=== PATIENT | female | born 1970 | race Caucasian/White ===

== ENCOUNTER 2024-05-20 14:45 | Emergency (ER) | payer OTHER, SELFPAY ==
[2024-05-20 14:47] VITALS: BP 144/104
[2024-05-20 16:53] LABS: % Basophils 1.1 % (0-2); % Eosinophils 6.4 % (0-6); % Immature Granulocytes 0.4 % (0-0.5); % Lymphocytes 39.7 % (20.5-51.1); % Monocytes 7.1 % (1.7-9.3); % Neutrophils 45.3 % (42.2-75.2); Absolute Basophils 0.1 10^3/uL (0-0.2); Absolute Eosinophils 0.3 10^3/uL (0-0.7); Absolute Lymphocytes 2.1 10^3/uL (1.2-3.4); Absolute Monocytes 0.4 10^3/uL (0.1-0.6); Absolute Neutrophils 2.4 10^3/uL (1.4-6.5); Hematocrit 36.4 % (37.0-47.0); Hemoglobin 12.8 g/dL (12.0-16.0); Mean Corp Hgb Conc. 35.2 g/dL (33.0-37.0); Mean Corpuscular Hgb 33.2 pg (27.0-31.0); Mean Corpuscular Volume 94.5 fL (81.0-99.0); Mean Platelet Volume 9.2 fL (7.4-10.4); Nucleated Red Blood Cells % 0 %; Platelet Count 262 10^3/uL (130-400); Red Blood Cell Count 3.85 10^6/uL (4.20-5.40); Red Cell Dist. Width 11.9 % (11.5-14.5); White Blood Cell Count 5.3 10^3/uL (4.8-10.8)
[2024-05-20 17:02] LABS: Erythrocyte Sed Rate 10 mm/hour (0-20)
--- NOTE | 2024-05-20 17:05 | ED.GENMED ---
History of Present Illness
General
Chief Complaint: Eye Problems
Source: patient
Exam Limitations: none
Time Seen by Provider: 05/20/24 16:05
Nursing documentation reviewed up to this point in time: agreed with
History of Present Illness
History of Present Illness:
Patient to ED with complaint of generalized weakness. States she was driving and suddenly noted that her vision seemed off. Had on her progressive glasses and rx sunglasses so she was not sure if it was the double prescription or her vision was
off. States she arrived at her destination and states she had difficulty standing and walking, felt generally weak. She positioned herself on the floor for a bit but did not feel improved. Came to ED for eval. Reports atypical head pain. Denies
fever/chills, recent illness. No n/v/d. No other complaints
Past History
Past History
ED Past Medical History: Asthma, GERD, Psychiatric (Anxiety, panic disorder), Other (Cervical disc disease, ovarian cysts, eczema), Other (Fibromyalgia, migraines, carpal tunnel) and Other (panic Disorder)
ED Past Surgical History: Cholecystectomy, Orthopedic and Tonsilectomy
Social History
Tobacco: Non-smoker
Alcohol: None
Drug: None
Personal:
Living: with family
Employment: Employed
Family History
Family History: Negative CAD or Sudden
Review of Systems
Review of Systems
Allergies reviewed?: Yes
All Other Systems: ROS reviewed and negative except as documented in HPI and ROS
Constitutional: Reports no symptoms
EENT: Reports other (vision changes)
Respiratory: Reports no symptoms
Cardiac: Reports no symptoms
ABD/GI: Reports no symptoms
: Reports no symptoms
Musculoskeletal: Reports no symptoms
Skin: Reports no symptoms
Neurological: Reports headache and weakness
Psychiatric: Reports no symptoms
Phy Exam
General Physical Exam
General Presentation: well appearing and no apparent distress
General age: appears stated age
General Skin: warm and dry
General Habitus: normal
General Mental: alert
General Hydration: appears well hydrated
ENT Exam
ENT Exam: EOMI, TM's normal, neck supple and normocephalic
Eye Exam
Eye Exam: PERRL, EOMI, conjunctiva normal and globe normal
Pulmonary Exam
Pulmonary Exam: lungs clear and no respiratory distress
Neurological Exam
Neurological Exam: alert, oriented x3, CN II-XII intact, no motor deficits, no sensory deficits and speech normal
Neyda Coma Scale
Eye Opening: Spontaneous
Verbal Response: Oriented
Motor Response: Obeys Commands
GCS Total Score: 15
Mental
Mental Status: oriented to person, oriented to place, oriented to time and usual mental status
Describe Speech: normal speech
Cranial
Cranial Nerves: normal
EOM (CN3/4/6): intact
Musculoskeletal Exam
Musculoskeletal Exam: full ROM and neuro vasc intact
Skin Exam
Skin Exam: normal color, warm/dry and no rash
Psychiatric Exam
Psychiatric Exam: normal mood/affect
Course
Orders/Labs/Results
Orders:
Orders
05/20/24 16:28
CT Head W/o Iv Contrast Urgent
Comment:
Reason For Exam: change in mental status
05/20/24 16:47
CRP [C-Reactive Protein] Urgent
Complete Blood Count/With Diff Urgent
Comprehensive Metabolic Panel Urgent
Sed Rate [Erythrocyte Sed Rate] Urgent
Abnormal Lab Results
05/20/24
16:47
RBC 3.85 L 10^6/uL
(4.20-5.40)
Hct 36.4 L %
(37.0-47.0)
MCH 33.2 H pg
(27.0-31.0)
Eosinophils % 6.4 H %
(0-6)
BUN 18 H mg/dl
(7-17)
Glucose 103 H mg/dl
(70-99)
AST 42 H U/L
(14-36)
05/20/24 16:47
05/20/24 16:47
Vital Signs
Initial and Last Documented VS:
Initial Vital Signs
Temp Pulse Resp BP Pulse Ox
98.5 F 98 20 144/104 100
05/20/24 14:47 05/20/24 14:47 05/20/24 14:47 05/20/24 14:47 05/20/24 14:47
Last Documented Vital Signs
Temp Pulse Resp BP Pulse Ox
98.5 F 87 16 122/73 100
05/20/24 14:47 05/20/24 18:57 05/20/24 18:57 05/20/24 18:57 05/20/24 18:57
*Radiology
Radiology exam reviewed: radiology read reviewed
*Pulse Oximetry
Patient hypoxic: no
*Critical Care Note
Total Time (30-74mins, 75-104mins- exclusive of procedures): Not Applicable
ED Attending Note
-
Portions of this chart may have been created with voice recognition software.� Occasional wrong word or��sound alike� substitutions may have occurred due to the inherent limitations of voice recognition software.
Discharge Plan
Departure
Patient Disposition: Home (Routine Discharge)
Date of Disposition: 05/20/24
Time of Disposition: 18:11
Patient with high blood pressure during this ER visit?: No
Condition: Good
Covid-19: Not Applicable
Discharge Problem:
Weakness
Instructions: Weakness ED
Prescriptions:
No Action
clonazepam 0.5 MG tablet
0.25 mg PO .AM
Patient Comments:
0.5 in am and 1.5 at bedtime
albuterol sulfate [Ventolin HFA] 90 MCG/PUFF HFA aerosol inhaler
2 puff inhalation PRN PRN (Reason: sob)
fluticasone propionate 1 SPRAY spray,suspension
2 spray intranasal DAILY
cetirizine 10 MG tablet
10 mg PO DAILY
Patient Comments:
Pt takes 2 tabs in am
famotidine 20 MG tablet
20 mg PO BID
Patient Comments:
takes 8am and 6pm
montelukast 10 MG tablet
10 mg PO QPM Qty: 30 0RF
fexofenadine [Kelly] 180 MG tablet
1 tab PO DAILY
Patient Comments:
2tabs in eliud at 6pm
epinephrine [EpiPen] 0.3 MG/0.3/SYRINGE auto-injector
0.3 mg IM ONCE PRN (Reason: ALLERGIC REACTION)
valacyclovir [Valtrex] 1,000 MG tablet
500 mg PO BID
Patient Comments:
pt takes 8am an d6pm
midodrine 10 MG tablet
15 mg PO BID
Patient Comments:
8am and 2pm pt takes medication
duloxetine 30 MG capsule,delayed release(DR/EC)
30 mg PO BID
Patient Comments:
pt takes 8am and 6pm
clonazepam 0.5 MG tablet
0.75 mg PO HS
Ketotifen Fumarate
2 mg PO BID
Patient Comments:
compound takes at 8am and 6pm
Nadolol
20 mg PO BID
Vascepa
2,000 mg PO BID
Patient Comments:
[facility] Pharm Fish oil 2tabs in am and 2 tabs at night
cromolyn [Gastrocrom] 100 MG/5 ML concentrate
2 ml PO QID
Patient Comments:
8am, 1pm 6pm and 10pm
ketotifen fumarate [Alaway] 10 ML drops
5 ml OP PRN PRN (Reason: .)
Patient Comments:
eye drop prn
triamcinolone acetonide 1 APPLIC ointment
1 applic topical BID
Patient Comments:
left leg dfor eczema
docusate sodium [Stool Softener] 100 MG capsule
1 tab PO DAILY
azelastine 1 SPRAY aerosol,spray
1 spray intranasal PRN PRN (Reason: .)
hydroxyzine HCl 10 MG tablet
20 mg PO HS
omalizumab [Xolair] 150 MG recon soln
2.4 ml S .[id number]
Patient Comments:
1 vial in each arm. Pt had saturday
fenofibrate nanocrystallized 48 MG tablet
48 mg PO DAILY
tiotropium bromide [Spiriva Respimat] 1 PUFF mist
1 puff inhalation DAILY
Riboflavin
2 tab PO DAILY
Patient Comments:
[id number] 200-180-50
Riboflavin Capsule
200 BID
Patient Comments:
200/200/200/75 pt takes 8am and 6pm for migraines
diphenhydramine HCl [Banophen] 25 MG capsule
25 mg PO Q4HPRN PRN (Reason: Itching, Rash) Qty: 10 0RF
prednisone 50 MG tablet
50 mg PO DAILY Qty: 5 0RF
epinephrine [EpiPen] 0.3 MG/0.3/SYRINGE auto-injector
0.3 mg IM .STAT PRN (Reason: Breathing Difficulty) Qty: 1 0RF
Referrals:
Benjamin Jefferson DO [Family Provider] - Tomorrow
Activity Restrictions/Additional Instructions:
Return to the emergency department immediately for any changes in/worsening of your symptoms
Interventions
Interventions:
*Risk Screen - Suicide Last Done: 05/20/24 14:47
*General Assessment Last Done: 05/20/24 19:03
*Neglect/Abuse Screening Last Done: 05/20/24 19:03
ED- Fall Risk Assessment Last Done: 05/20/24 19:03
*ED COVID-19 Vaccine History Last Done: 05/20/24 19:03
*Nursing Disposition Last Done: 05/20/24 19:03
Discharge Date and Time
Discharge Date/Time: 05/20/24 19:05
Print Language: SYRIAC
[2024-05-20 17:15] LABS: C-Reactive Protein < 5.00 mg/L (0.0-10.00)
[2024-05-20 17:19] LABS: ALT (SGPT) 35 U/L (0-35); AST (SGOT) 42 U/L (14-36); Albumin 4.7 g/dl (3.5-5.0); Alkaline Phosphatase 46 U/L (38-126); Blood Urea Nitrogen 18 mg/dl (7-17); Carbon Dioxide 27 mmol/L (22-30); Chloride 101 mmol/L (98-107); Glucose 103 mg/dl (70-99); Potassium 5.1 mmol/L (3.5-5.1); Sodium 140 mmol/L (135-145); Total Bilirubin 0.3 mg/dl (0.2-1.3); Total Protein 6.9 g/dl (6.3-8.2); eGFR > 60.00
[2024-05-20 18:57] VITALS: BP 122/73
== END 2024-05-20 19:05 | disposition home or self-care (01) ==
LOC: EMR 14:45
PROVIDERS: Nurse Practitioner; EMERGENCY PHYSICIAN Emergency Medicine; FAMILY PHYSICIAN Family Medicine
DX: R53.1 Weakness (principal); J45.909 Unspecified asthma, uncomplicated; K21.9 Gastro-esophageal reflux disease without esophagitis; F41.9 Anxiety disorder, unspecified; F41.0 Panic disorder [episodic paroxysmal anxiety]; M79.7 Fibromyalgia; Z90.49 Acquired absence of other specified parts of digestive tract
CPT/HCPCS: 99284; 70450; 80053; 85025; 85652; 86140

== ENCOUNTER 2024-09-18 06:32 | Day surgery (SDC) | payer OTHER, SELFPAY | END 2024-09-18 09:55 | disposition home or self-care (01) | LOC: GI 06:32 | PROVIDERS: ATTENDING PHYSICIAN Internal Medicine Gastroenterology; FAMILY PHYSICIAN Family Medicine | DX: R13.10 Dysphagia, unspecified (principal); R14.0 Abdominal distension (gaseous); K31.89 Other diseases of stomach and duodenum | CPT/HCPCS: 43239; 88305; 88342 ==